=== PATIENT | male | born 1970 | race Caucasian/White ===

== ENCOUNTER 2025-04-09 09:38 | Emergency (ER) | payer OTHER ==
[~2025-04-09] VITALS: Ht 175.3 cm; Wt 125.4 kg
[2025-04-09 09:59] LABS: BASOPHILS 0.8 % (0-2); EOSINOPHILS 4.6 % (0-6); HEMATOCRIT 45.4 % (35.0-50.0); HEMOGLOBIN 15.7 g/dL (12.0-18.0); LYMPHOCYTES 26.4 % (24-44); MCH 31.4 (27-36); MCHC 34.5 g/dl (30-36); MCV 90.9 fl (81-99); MONOCYTES 6.1 % (0-12); NEUTROPHILS 62.1 % (39-80); PLATELET COUNT 116 K/uL (140-440); RBC 4.99 M/ul (4.3-5.7); RDW 13.4 (10.5-15.0)
[2025-04-09] MEDS ORDERED: ASPIRIN 81 MG CHEW PO ONE (10:00)
[2025-04-09] MEDS ORDERED: FAMOTIDINE 20 MG/ 2 ML VIAL IV ONE (10:15)
[2025-04-09] MEDS ORDERED: LIDOCAINE & ANTACID 35 ML BTL PO ONE (10:15)
[2025-04-09 10:17] LABS: ALBUMIN 3.8 g/dL (3.4-5.0); BILIRUBIN, TOTAL 1.4 mg/dL (0.2-1.0); BUN/CREATININE RATIO 8.65 (6.0-28.6); CALCIUM 8.7 mg/dL (8.5-10.1); CREATININE, SERUM 1.04 mg/dL (0.70-1.30); MAGNESIUM 2.1 mg/dL (1.8-2.4); PROTEIN, TOTAL 7.6 g/dL (6.4-8.2)
--- NOTE | 2025-04-09 14:38 | EKG ---
[facility] [address] [facility] [place] [address] Signed Sinus rhythm with occasional premature ventricular complexes Otherwise normal ECG No previous ECGs available Confirmed by Leanna Sommer DO ([id number]) on 04/09/2025 2:38:36 PM Electronically Signed By: LEANNA SOMMER DO 04/09/25 1438 PATIENT NAME: GERARD HIDALGO Electrocardiogram DATE OF : 74 PHYSICIAN: LEANNA SOMMER DO REPORT #: [id number] REPORT IS CONFIDENTIAL AND NOT TO BE RELEASED WITHOUT AUTHORIZATION
[2025-04-09 14:45] VITALS: BP 151/99
== END 2025-04-09 14:47 | disposition home or self-care (01) ==
LOC: ED 09:38
PROVIDERS: Emergency Medicine
DX: R07.2 Precordial pain (principal); I10 Essential (primary) hypertension; I25.2 Old myocardial infarction; Z88.1 Allergy status to other antibiotic agents; Z88.8 Allergy status to other drugs, medicaments and biological substances
CPT/HCPCS: 36415; 71045; 71275; 80053; 83690; 83735; 84484; 85025; 93005; 93010; 99285-25; Q9967